=== PATIENT | male | born 1970 | race Caucasian/White ===

== ENCOUNTER 2017-01-01 16:37 | Emergency (ER) | payer MEDICARE ==
[~2017-01-01 16:37] MED LIST: SULF1TAB24 PO
[2017-01-01 17:21] VITALS: BP 143/86
--- NOTE | 2017-01-01 17:56 | PHYS DOC ---
Past Medical History Past Medical History: No Pertinent History Past Surgical History: Other Additional Past Surgical Histo: RIGHT WRIST NERVE SX Alcohol Use: Occasionally Drug Use: None Adult General Chief Complaint Chief Complaint: WOUND CHECK HPI HPI Patient is a 46 year old Male who is in the ED today for wound check for an abscess that was drained 2 days ago. Patient states the packing fell out yesterday. Patient states he is currently on antibiotics. Review of Systems Review of Systems Constitutional: Denies fever or chills [] Musculoskeletal: Denies back pain or joint pain [] Integument wound check Neurologic: Denies headache, focal weakness or sensory changes [] Endocrine: Denies polyuria or polydipsia [] Current Medications Current Medications Current Medications Medications (Trade) Dose Ordered Sig/Ana Start Time Stop Time Status Last Admin Dose Admin Diphtheria/ Tetanus/Acell Pertussis (Boostrix) 0.5 ml ONCE ONCE 01/01/17 18:00 01/01/17 18:01 Allergies Allergies Allergies Coded Allergies Type Severity Reaction Last Updated Verified No Known Drug Allergies 12/30/16 No Physical Exam Physical Exam Constitutional: Well developed, well nourished, no acute distress, non-toxic appearance. [] Skin: Right buttock with an open wound approximately 1 x 1 cm with surrounding approximately 2 cm of cellulitis. The area has trace amount of drainage. Back: No tenderness, no CVA tenderness. [] Extremities: No tenderness, no cyanosis, no clubbing, ROM intact, no edema. [] Neurologic: Alert and oriented X 3, normal motor function, normal sensory function, no focal deficits noted. [] Psychologic: Affect normal, judgement normal, mood normal. [] Current Patient Data Vital Signs Vital Signs Date Time Temp Pulse Resp B/P Pulse Ox O2 Delivery O2 Flow Rate FiO2 01/01/17 17:21 98.5 92 18 99 Room Air 98.5 EKG EKG [] Radiology/Procedures Radiology/Procedures [] Course & Med Decision Making Course & Med Decision Making Pertinent Labs and Imaging studies reviewed. (See chart for details) Patient is in the ED to be evaluated for an abscess that was opened up and drained 2 days ago. He is already on antibiotics. The area appears to be healing well. We cleaned the area and covered it again. Instructed patient to continue taking his antibiotics. He was given tetanus in the ED. Tylenol / Motrin recommended for pain. Instructed to return to the ED at any point wound condition worsens or develops a fever or has any other concerning symptoms. I recommended seeing a PCP in the next 7 days. Azeb Disclaimer Azeb Disclaimer This electronic medical record was generated, in whole or in part, using a voice recognition dictation system. Departure Departure Impression: Primary Impression: Wound check, abscess Disposition: HOME, SELF-CARE Condition: STABLE Referrals: NO PCP (PCP) CASSANDRA MERCEDES MD follow-up with your own doctor or the provided doctor in a week Patient Instructions: Abscess, Care After Additional Instructions: You were seen for an abscess on the left buttock which was drained 2 days ago. The wound appears to be healing well, continue taking antibiotics. Monitor it for worsening condition and return to the ED. If you have any fever also come back to the emergency room. Keep the area clean and dry. MARKEL DUNN APRN Jan 01, 2017 17:56
[2017-01-01] MEDS ORDERED: DIPHTH,PERTUSS(ACELL),TET TOX 0.5 ML DISP.SYRIN. VAX IM ONE (18:00)
== END 2017-01-01 18:23 | disposition home or self-care (01) ==
LOC: ER 16:37
DX: Z48.01 Encounter for change or removal of surgical wound dressing (principal)
CPT/HCPCS: 90471; 90715; 99283-25

== ENCOUNTER 2017-04-09 09:02 | Emergency (ER) | payer SELFPAY ==
[~2017-04-09] VITALS: Ht 188 cm; Wt 108.9 kg
[2017-04-09 09:10] VITALS: BP 146/71
[2017-04-09] MEDS ORDERED: SULF1TAB24 PO (09:37)
[2017-04-09] MEDS ORDERED: HYDR-971 PO (09:37)
--- NOTE | 2017-04-09 09:38 | PHYS DOC ---
Past Medical History Past Medical History: No Pertinent History Past Surgical History: No Surgical History, Other Additional Past Surgical Histo: RIGHT WRIST NERVE SX Alcohol Use: Occasionally Drug Use: None Adult General Chief Complaint Chief Complaint: ABSCESS HPI HPI Patient is a 46 year old male presents to the emergency department with a history of abscess on the right buttock. Patient states he has been placing Prid on the area. Patient denies drainage or discharge. Patient denies fever, chills, nausea or vomiting. Patient states he has had abscesses in the same area about 4 months ago. Patient denies recent use of antibiotics. Review of Systems Review of Systems Constitutional: Denies fever or chills [] Eyes: Denies change in visual acuity, redness, or eye pain [] HENT: Denies nasal congestion or sore throat [] Respiratory: Denies cough or shortness of breath [] Cardiovascular: No additional information not addressed in HPI [] GI: Denies abdominal pain, nausea, vomiting, bloody stools or diarrhea [] : Denies dysuria or hematuria [] Musculoskeletal: Denies back pain or joint pain [] Integument: Denies rash or skin lesions. C/o abscess to right buttock Neurologic: Denies headache, focal weakness or sensory changes [] Endocrine: Denies polyuria or polydipsia [] Allergies Allergies Allergies Coded Allergies Type Severity Reaction Last Updated Verified No Known Drug Allergies 12/30/16 No Physical Exam Physical Exam Constitutional: Well developed, well nourished, no acute distress, non-toxic appearance. [] HENT: Normocephalic, atraumatic, bilateral external ears normal, oropharynx moist, no oral exudates, nose normal. [] Eyes: PERRLA, EOMI, conjunctiva normal, no discharge. [] Neck: Normal range of motion, no tenderness, supple, no stridor. [] Cardiovascular: Patient pink, warm and dry Lungs & Thorax: no respiratory distress noted Skin: Warm, dry, no erythema, no rash. Patient with abscess noted to the right buttock, area appears red in color, tender with thick dark cream color drainage noted. Back: No tenderness Extremities: No tenderness, no cyanosis, no clubbing, ROM intact, no edema. [] Neurologic: Alert and oriented X 3, normal motor function, normal sensory function, no focal deficits noted. [] Psychologic: Affect normal, judgement normal, mood normal. [] Current Patient Data Vital Signs Vital Signs Date Time Temp Pulse Resp B/P (MAP) Pulse Ox O2 Delivery O2 Flow Rate FiO2 04/09/17 09:10 98.5 88 18 98 Room Air 98.5 EKG EKG [] Radiology/Procedures Radiology/Procedures [] Course & Med Decision Making Course & Med Decision Making Pertinent Labs and Imaging studies reviewed. (See chart for details) Expressed the area with thick dark creamy drainage noted. Area size appears as a golf ball size. Patient will be placed on Bactrim, he will be provided with Holley for severe pain and discomfort. Recommended warm sitz bath 4 times a day. Patient also informed Holley will cause drowsiness do not take if you need to be alert and oriented. Followup with your primary care provider in 3-5 days. Return to emergency department as needed for signs and symptoms that become worse. [] Dragon Disclaimer Dragon Disclaimer This electronic medical record was generated, in whole or in part, using a voice recognition dictation system. Departure Departure Impression: Primary Impression: Abscess of right buttock Disposition: 01 HOME, SELF-CARE Condition: STABLE Referrals: NO PCP (PCP) Patient Instructions: Abscess, [id number] Additional Instructions: Activity as tolerated Medication as prescribed Holley will cause drowsiness do not take if you need to be alert and oriented Warm sitz bath 4 times a day to help promote drainage Followup with your primary care provider in 3-5 days Return to emergency department as needed for signs and symptoms that becomes worse. Scripts Hydrocodone/Apap 5-325 (NORCO 5-325 TABLET) 1 Each Tablet 1 TAB PO PRN Q6HRS Y for PAIN, #15 TAB 0 Refills Prov: JOHN GIBBS APRN 04/09/17 Sulfamethoxazole/Trimethoprim (BACTRIM DS TABLET) 1 Each Tablet 1 TAB PO BID, #20 TAB Prov: JOHN GIBBS APRN 04/09/17 JOHN GIBBS APRN April 09, 2017 09:38
== END 2017-04-09 09:54 | disposition home or self-care (01) ==
LOC: ER 09:02
DX: L02.31 Cutaneous abscess of buttock (principal)
CPT/HCPCS: 99283

== ENCOUNTER 2017-05-29 18:30 | Emergency (ER) | payer SELFPAY ==
[~2017-05-29] VITALS: Ht 188 cm; Wt 104.3 kg
[~2017-05-29 18:30] MED LIST changes: +HYDR-971 PO
[2017-05-29 18:51] VITALS: BP 149/93
[2017-05-29] MEDS ORDERED: IV NORMAL SALINE 1000ML BAG 1,000 ML IV SCH (19:39)
[2017-05-29 20:00] LABS: BASO % 0 % (0-3); EOS % 1 % (0-3); HEMATOCRIT 43.9 % (39.0-53.0); HEMOGLOBIN 14.7 g/dL (13.0-17.5); LYMPH # 2.1 x10^3/uL (1.0-4.8); LYMPH % 18 % (24-48); MEAN CORPUSCULAR HEMOGLOBIN 29 pg (25-35); MEAN CORPUSCULAR HGB CONC 33 g/dL (31-37); MEAN CORPUSCULAR VOLUME 87 fL (79-100); MONO % 8 % (0-9); NEUT % 73 % (31-73); PLATELET COUNT 235 x10^3/uL (140-400); RED BLOOD COUNT 5.06 x10^6/uL (4.30-5.70); RED CELL DISTRIBUTION WIDTH 13.3 % (11.5-14.5); WHITE BLOOD COUNT 11.7 x10^3/uL (4.0-11.0)
[2017-05-29 20:12] LABS: CALCIUM 8.7 mg/dL (8.5-10.1); CREATININE 1.4 mg/dL (0.7-1.3); GFR 54.6; POTASSIUM 3.7 mmol/L (3.5-5.1)
[2017-05-29 20:15] LABS: BILIRUBIN,URINE NEGATIVE (NEG); GLUCOSE,URINE NEGATIVE (NEG); NITRITE,URINE NEGATIVE (NEG); PH,URINE 5.5; PROTEIN,URINE NEGATIVE (NEG-TRACE); UROBILINOGEN,URINE 0.2 mg/dL (0.2 mg/dL)
[2017-05-29 20:23] LABS: BACTERIA,URINE 0 /HPF (0-FEW); RBC,URINE 0 /HPF (0-2); WBC,URINE OCC /HPF (0-4)
[2017-05-29] MEDS ORDERED: CEPH-264 PO (20:40)
--- NOTE | 2017-05-29 20:41 | PHYS DOC ---
Past Medical History Past Medical History: No Pertinent History Additional Past Medical Histor: vision defecit (optic atrophy) Past Surgical History: No Surgical History, Other Additional Past Surgical Histo: RIGHT WRIST NERVE SX, AVM with radiation Alcohol Use: Occasionally Drug Use: None Adult General Chief Complaint Chief Complaint: ANXIETY/PANIC ATTACK HPI HPI 46-year-old male with a long history of anxiety never treated now presents to the emergency department after anxiety and panic attack today. Patient states he got symptoms that were typical for him he became severely anxious. He took a Xanax that as a friend's medication and now feels improved. Patient's blood pressure is slightly elevated nonevaluation and he states that he's been aware at least once previously that it had been elevated. He is not treated for high blood pressure. Patient states he eels he does get fatigued easily but has not had any chest pain or shortness of breath or other symptoms Review of Systems Review of Systems Constitutional: Denies fever or chills [] Eyes: Denies change in visual acuity, redness, or eye pain [] HENT: Denies nasal congestion or sore throat [] Respiratory: Denies cough or shortness of breath [] Cardiovascular: No additional information not addressed in HPI [] GI: Denies abdominal pain, nausea, vomiting, bloody stools or diarrhea [] : Denies dysuria or hematuria [] Musculoskeletal: Denies back pain or joint pain [] Integument: Denies rash or skin lesions [] Neurologic: Denies headache, focal weakness or sensory changes [] Endocrine: Denies polyuria or polydipsia [] Current Medications Current Medications Current Medications Medications (Trade) Dose Ordered Sig/Ana Start Time Stop Time Status Last Admin Dose Admin Sodium Chloride 1,000 ml @ 100 mls/hr Q10H 05/29/17 19:39 05/30/17 05:38 05/29/17 19:45 100 MLS/HR Allergies Allergies Allergies Coded Allergies Type Severity Reaction Last Updated Verified No Known Drug Allergies 12/30/16 No Physical Exam Physical Exam Well-appearing male in no acute distress alert and communicative and cooperative nonfocal neurologic exam. Benign exam except blood pressure 140s over 90s on monitor. Patient is asymptomatic after taking the Xanax at home Constitutional: Well developed, well nourished, no acute distress, non-toxic appearance. [] HENT: Normocephalic, atraumatic, bilateral external ears normal, oropharynx moist, no oral exudates, nose normal. [] Eyes: PERRLA, EOMI, conjunctiva normal, no discharge. [] Neck: Normal range of motion, no tenderness, supple, no stridor. [] Cardiovascular:Heart rate regular rhythm, no murmur [] Lungs & Thorax: Bilateral breath sounds clear to auscultation [] Abdomen: Bowel sounds normal, soft, no tenderness, no masses, no pulsatile masses. [] Skin: Warm, dry, no erythema, no rash. [] Back: No tenderness, no CVA tenderness. [] Extremities: No tenderness, no cyanosis, no clubbing, ROM intact, no edema. [] Neurologic: Alert and oriented X 3, normal motor function, normal sensory function, no focal deficits noted. [] Psychologic: Affect normal, judgement normal, mood normal. [] Current Patient Data Vital Signs Vital Signs Date Time Temp Pulse Resp B/P (MAP) Pulse Ox O2 Delivery O2 Flow Rate FiO2 05/29/17 18:51 98.5 95 18 149/93 (111) 98 Room Air 98.5 Lab Values Laboratory Tests Test 05/29/17 19:50 05/29/17 20:05 White Blood Count 11.7 x10^3/uL (4.0-11.0) H Red Blood Count 5.06 x10^6/uL (4.30-5.70) Hemoglobin 14.7 g/dL (13.0-17.5) Hematocrit 43.9 % (39.0-53.0) Mean Corpuscular Volume 87 fL (79-100) Mean Corpuscular Hemoglobin 29 pg (25-35) Mean Corpuscular Hemoglobin Concent 33 g/dL (31-37) Red Cell Distribution Width 13.3 % (11.5-14.5) Platelet Count 235 x10^3/uL (140-400) Neutrophils (%) (Auto) 73 % (31-73) Lymphocytes (%) (Auto) 18 % (24-48) L Monocytes (%) (Auto) 8 % (0-9) Eosinophils (%) (Auto) 1 % (0-3) Basophils (%) (Auto) 0 % (0-3) Neutrophils # (Auto) 8.6 x10^3uL (1.8-7.7) H Lymphocytes # (Auto) 2.1 x10^3/uL (1.0-4.8) Monocytes # (Auto) 0.9 x10^3/uL (0.0-1.1) Eosinophils # (Auto) 0.1 x10^3/uL (0.0-0.7) Basophils # (Auto) 0.0 x10^3/uL (0.0-0.2) Sodium Level 142 mmol/L (136-145) Potassium Level 3.7 mmol/L (3.5-5.1) Chloride Level 105 mmol/L (98-107) Carbon Dioxide Level 29 mmol/L (21-32) Anion Gap 8 (6-14) Blood Urea Nitrogen 18 mg/dL (8-26) Creatinine 1.4 mg/dL (0.7-1.3) H Estimated GFR (Cockcroft-Gault) 54.6 Glucose Level 101 mg/dL (70-99) H Calcium Level 8.7 mg/dL (8.5-10.1) Troponin I Quantitative < 0.017 ng/mL (0.000-0.055) Thyroid Stimulating Hormone (TSH) 2.471 uIU/mL (0.358-3.74) Urine Collection Type Unknown Urine Color Yellow Urine Clarity Clear Urine pH 5.5 Urine Specific [place] <=1.005 Urine Protein Negative mg/dL (NEG-TRACE) Urine Glucose (UA) Negative mg/dL (NEG) Urine Ketones (Stick) Negative mg/dL (NEG) Urine Blood Negative (NEG) Urine Nitrite Negative (NEG) Urine Bilirubin Negative (NEG) Urine Urobilinogen Dipstick 0.2 mg/dL (0.2 mg/dL) Urine Leukocyte Esterase Negative (NEG) Urine RBC 0 /HPF (0-2) Urine WBC Occ /HPF (0-4) Urine Bacteria 0 /HPF (0-FEW) Laboratory Tests 05/29/17 19:50 Laboratory Tests 05/29/17 19:50 EKG EKG EKG with normal sinus rhythm at 94 and normal axis no STEMI interpreted by me [] Radiology/Procedures Radiology/Procedures Chest x-ray chronic changes no acute disease interpreted by me [] Course & Med Decision Making Course & Med Decision Making Pertinent Labs and Imaging studies reviewed. (See chart for details) Signs and symptoms consistent with attacks of anxiety/panic in a patient with long history of untreated anxiety. He is a symptomatically emergency department , and that he feels he gets fatigued easily. Extensive workup unremarkable. Patient were to follow up with PCP for reevaluation and treatment of anxiety as needed. Patient were to follow up with PCP for recheck of a pressure and to initiate treatment for essential hypertension as needed no further workup or treatment indicated. Patient and common law spouse agree with outpatient follow- up and strict return precautions given. [] Dragon Disclaimer Dragon Disclaimer This electronic medical record was generated, in whole or in part, using a voice recognition dictation system. Departure Departure Impression: Primary Impression: Panic attack Additional Impression: Hypertension Disposition: HOME, SELF-CARE Condition: IMPROVED Referrals: NO PCP (PCP) Patient Instructions: Anxiety and Panic Attacks, Hypertension Additional Instructions: Is quite clearly give had an attack of your anxiety and panic today. Use Xanax as needed as prescribed and follow up with your doctor in 2 days for reevaluation and to discuss the need for continued treatment as needed. Given that you've suffered with these attacks for many years it seems likely that you may benefit from treatment with a benzodiazepine, for instance Xanax, as needed. The aware that her blood pressure was elevated today at 143/92. Follow- up with your doctor for recheck and to initiate treatment for essential hypertension as needed. Return immediately for new severe worsening symptoms Scripts Alprazolam (XANAX) 0.5 Mg Tablet 1 TAB PO BID Y for ANXIETY / AGITATION, #5 TAB Prov: MARIE GARRETT MD 05/29/17 Cephalexin (KEFLEX) 500 Mg Capsule 1 CAP PO QID, #20 CAP Prov: MARIE GARRETT MD 05/29/17 Problem Qualifiers MARIE GARRETT MD May 29, 2017 20:41
[2017-05-29] MEDS ORDERED: ALPR0.5T PO (20:47)
--- NOTE | 2017-05-30 06:46 | EKG ---
[facility] [address] [place] [address] Test Date: 2017-05-29 Test Time: 19:51:15 Pat Name: CHRISTINE DOOLEY Department: Room: Gender: M [place]apper: : 1970 Requested By: MARIE GARRETT Order Number: [id number] Reading MD: Measurements Intervals [place] Rate: 94 P: 37 DC: 140 QRS: 19 QRSD: 86 T: 16 QT: 336 QTc: 425 Interpretive Statements SINUS RHYTHM LEFT ATRIAL ABNORMALITY ABNORMAL ECG RI6.01 No previous ECG available for comparison
--- NOTE | 2017-05-30 08:09 | RAD ---
Portable chest, 05/29/2017: History: Palpitations The heart size and pulmonary vascularity are normal. The lungs are clear. There is no evidence of pleural fluid. IMPRESSION: No acute cardiopulmonary abnormality is detected.
== END 2017-05-29 21:10 | disposition home or self-care (01) ==
LOC: ER 18:30
DX: F41.0 Panic disorder [episodic paroxysmal anxiety] (principal); I10 Essential (primary) hypertension
CPT/HCPCS: 36415; 71010; 80048; 81001; 84443; 84484; 85027; 93005; 96360; 99285; J7030

== ENCOUNTER 2019-10-01 09:26 | Emergency (ER) | payer MEDICARE ==
[~2019-10-01] VITALS: Ht 188 cm; Wt 111.1 kg
[~2019-10-01 09:26] MED LIST changes: +ALPR0.5T PO; +CEPH-264 PO; +HYDR-3164 PO; -HYDR-971 PO
[2019-10-01] MEDS ORDERED: ASPIRIN CHEWABLE 81 MG TABLET. PO ONE (09:45)
[2019-10-01 09:56] LABS: BASO # 0.1 x10^3/uL (0.0-0.2); BASO % 1 % (0-3); EOS # 0.2 x10^3/uL (0.0-0.7); EOS % 2 % (0-3); HEMATOCRIT 43.9 % (39.0-53.0); HEMOGLOBIN 15.2 g/dL (13.0-17.5); LYMPH # 2.3 x10^3/uL (1.0-4.8); LYMPH % 24 % (24-48); MEAN CORPUSCULAR HEMOGLOBIN 31 pg (25-35); MEAN CORPUSCULAR HGB CONC 35 g/dL (31-37); MEAN CORPUSCULAR VOLUME 88 fL (79-100); MONO # 0.8 x10^3/uL (0.0-1.1); MONO % 8 % (0-9); NEUT # 6.2 x10^3/uL (1.8-7.7); NEUT % 65 % (31-73); PLATELET COUNT 240 x10^3/uL (140-400); RED BLOOD COUNT 4.98 x10^6/uL (4.30-5.70); RED CELL DISTRIBUTION WIDTH 13.2 % (11.5-14.5); WHITE BLOOD COUNT 9.4 x10^3/uL (4.0-11.0)
[2019-10-01 10:01] LABS: CALCIUM 9.5 mg/dL (8.5-10.1); CREATININE 1.3 mg/dL (0.7-1.3); GFR 58.9; POTASSIUM 4.3 mmol/L (3.5-5.1)
[2019-10-01 10:06] LABS: ALBUMIN 4.3 g/dL (3.4-5.0); ALBUMIN/GLOBULIN RATIO 1.2 (1.0-1.7); MAGNESIUM 1.9 mg/dL (1.8-2.4); TOTAL BILIRUBIN 0.5 mg/dL (0.2-1.0); TOTAL PROTEIN 7.9 g/dL (6.4-8.2)
--- NOTE | 2019-10-01 10:15 | RAD ---
AP and Lateral Views of the Chest 10/01/2019 9:38 AM Indication: Chest pain Comparison: Chest radiograph May 29, 2017 Findings: There is no focal consolidation or infiltrate identified. The cardiomediastinal silhouette is within normal limits. There is no evidence of pneumothorax or pleural effusion. No acute osseous abnormalities are identified. Impression: No evidence of acute cardiopulmonary process. Electronically signed by: Black Fowler MD (10/01/2019 10:12 AM) [id number]
--- NOTE | 2019-10-01 10:24 | PHYS DOC ---
Past Medical History Past Medical History: Anxiety, Hypertension Additional Past Medical Histor: vision defecit (optic atrophy) Past Surgical History: No Surgical History, Other Additional Past Surgical Histo: RIGHT WRIST NERVE SX, AVM with radiation Alcohol Use: Rarely Drug Use: None Adult General Chief Complaint Chief Complaint: DIZZY/LIGHT HEADED HPI HPI Patient is a 48 year old male patient with history of hypertension and anxiety who presents with obtaining of chest pain. Patient complaining of 2 episodes of left upper chest pain since last night that last about 10 seconds with radiation to left shoulder without shortness of breath, nausea and vomiting, palpitation. Patient complaining of dizziness and lightheadedness and states he took 1 mg of Xanax about an hour prior to arrival to ER with improvement of his condition. Review of Systems Review of Systems Constitutional: Denies fever or chills [] Eyes: Denies change in visual acuity, redness, or eye pain [] HENT: Denies nasal congestion or sore throat [] Respiratory: Denies cough or shortness of breath [] Cardiovascular: No additional information not addressed in HPI [] GI: Denies abdominal pain, nausea, vomiting, bloody stools or diarrhea [] : Denies dysuria or hematuria [] Musculoskeletal: Denies back pain or joint pain [] Integument: Denies rash or skin lesions [] Neurologic: Denies headache, focal weakness or sensory changes, reports dizziness [] Endocrine: Denies polyuria or polydipsia [] All other systems were reviewed and found to be within normal limits, except as documented in this note. Current Medications Current Medications Current Medications Medications (Trade) Dose Ordered Sig/[facility] Start Time Stop Time Status Last Admin Dose Admin Aspirin (Children'S Aspirin) 324 mg 1X ONCE 10/01/19 09:45 10/01/19 09:46 DC 10/01/19 09:58 324 MG Allergies Allergies Allergies Coded Allergies Type Severity Reaction Last Updated Verified No Known Drug Allergies 12/30/16 No Physical Exam Physical Exam Constitutional: Well developed, well nourished, mild distress, non-toxic appearance. [] HENT: Normocephalic, atraumatic. Eyes: PERRLA, EOMI, conjunctiva normal, no discharge. [] Neck: Normal range of motion, no tenderness, supple, no stridor. [] Cardiovascular:Heart rate regular rhythm, no murmur [] Lungs & Thorax: Bilateral breath sounds clear to auscultation [] Abdomen: Bowel sounds normal, soft, no tenderness, no masses, no pulsatile masses. [] Skin: Warm, dry, no erythema, no rash. [] Back: No tenderness, no CVA tenderness. [] Extremities: No tenderness, no cyanosis, no clubbing, ROM intact, no edema. [] Neurologic: Alert and oriented X 3, no focal deficits noted. [] Psychologic: Affect anxious, judgement normal, mood normal. [] Current Patient Data Vital Signs Vital Signs Date Time Temp Pulse Resp B/P (MAP) Pulse Ox O2 Delivery O2 Flow Rate FiO2 10/01/19 10:29 75 16 99 10/01/19 09:40 98.1 162/104 (123) Room Air 98.1 Lab Values Laboratory Tests Test 10/01/19 09:35 White Blood Count 9.4 x10^3/uL (4.0-11.0) Red Blood Count 4.98 x10^6/uL (4.30-5.70) Hemoglobin 15.2 g/dL (13.0-17.5) Hematocrit 43.9 % (39.0-53.0) Mean Corpuscular Volume 88 fL (79-100) Mean Corpuscular Hemoglobin 31 pg (25-35) Mean Corpuscular Hemoglobin Concent 35 g/dL (31-37) Red Cell Distribution Width 13.2 % (11.5-14.5) Platelet Count 240 x10^3/uL (140-400) Neutrophils (%) (Auto) 65 % (31-73) Lymphocytes (%) (Auto) 24 % (24-48) Monocytes (%) (Auto) 8 % (0-9) Eosinophils (%) (Auto) 2 % (0-3) Basophils (%) (Auto) 1 % (0-3) Neutrophils # (Auto) 6.2 x10^3/uL (1.8-7.7) Lymphocytes # (Auto) 2.3 x10^3/uL (1.0-4.8) Monocytes # (Auto) 0.8 x10^3/uL (0.0-1.1) Eosinophils # (Auto) 0.2 x10^3/uL (0.0-0.7) Basophils # (Auto) 0.1 x10^3/uL (0.0-0.2) Sodium Level 140 mmol/L (136-145) Potassium Level 4.3 mmol/L (3.5-5.1) Chloride Level 103 mmol/L (98-107) Carbon Dioxide Level 30 mmol/L (21-32) Anion Gap 7 (6-14) Blood Urea Nitrogen 17 mg/dL (8-26) Creatinine 1.3 mg/dL (0.7-1.3) Estimated GFR (Cockcroft-Gault) 58.9 BUN/Creatinine Ratio 13 (6-20) Glucose Level 116 mg/dL (70-99) H Calcium Level 9.5 mg/dL (8.5-10.1) Magnesium Level 1.9 mg/dL (1.8-2.4) Total Bilirubin 0.5 mg/dL (0.2-1.0) Aspartate Amino Transferase (AST) 26 U/L (15-37) Alanine Aminotransferase (ALT) 58 U/L (16-63) Alkaline Phosphatase 60 U/L (46-116) Creatine Kinase 117 U/L (39-308) Troponin I Quantitative < 0.017 ng/mL (0.000-0.055) JS-Foj-J-Type Natriuretic Peptide 30 pg/mL (0-124) Total Protein 7.9 g/dL (6.4-8.2) Albumin 4.3 g/dL (3.4-5.0) Albumin/Globulin Ratio 1.2 (1.0-1.7) Lipase 228 U/L (73-393) Laboratory Tests 10/01/19 09:35 Laboratory Tests 10/01/19 09:35 EKG EKG EKG interpreted by me. EKG at 0 952 showed normal sinus rhythm at rate of 71, no rmal IL and QT interval patient, no acute ST and T-wave elevation. Radiology/Procedures Radiology/Procedures [][facility] [address] [place] [address] IMAGING REPORT Signed PATIENT: CHRISTINE DOOLEY ACCOUNT: [id number] : 1970 LOCATION: ER AGE: 48 SEX: M EXAM STATUS: REG ER ORD. PHYSICIAN: SONALI BARNES MD REASON: chest pain PROCEDURE: CHEST PA & LATERAL AP and Lateral Views of the Chest 10/01/2019 9:38 AM Indication: Chest pain Comparison: Chest radiograph May 29, 2017 Findings: There is no focal consolidation or infiltrate identified. The cardiomediastinal silhouette is within normal limits. There is no evidence of pneumothorax or pleural effusion. No acute osseous abnormalities are identified. Impression: No evidence of acute cardiopulmonary process. Electronically signed by: Black Bell MD (10/01/2019 10:12 AM) [id number] DICTATED and SIGNED BY: BLACK BELL MD DATE: 10/01/19 1012 Course & Med Decision Making Course & Med Decision Making Pertinent Labs and Imaging studies reviewed. (See chart for details) Evaluation of patient in ER showed 48-year-old male patient with history of anxiety with heart score of 2 presented to ER and getting of 2 episodes of chest pain for few second. Patient was anxious in ER. EKG, labs, chest x-ray was unre markable. Patient felt better while he was in ER. Plan discharge patient home to diagnose of anxiety. I've spoken with the patient and/or caregivers. I've explained the patient's co ndition, diagnosis and treatment plan based on information available to me at this time. I've answered the patient's and/or caregivers questions and addressed any concerns. The patient and/or caregivers have a good understanding the patient's diagnosis, condition and treatment plan as can be expected at this point. Vital signs have been stabilized. The patient's condition is stable for discharge from the emergency department. The patient will pursue further outpatient evaluation with her primary care provider or other designated consulting physician as outlined in the discharge instructions. Patient and/or caregivers are agreeable to this plan of care and follow-up instructions have been explained in detail. The patient and/or caregivers have received these instructions in written format and expressed understanding of these discharge instructions. The patient and her caregivers are aware that if any significant change in condition or worsening of symptoms should prompt him to immediately return to this of the closest emergency department. If an emergent department is not readily available I would encourage him to call 911. Azeb Disclaimer Azeb Disclaimer This electronic medical record was generated, in whole or in part, using a voice recognition dictation system. Departure Departure Impression: Primary Impression: Anxiety about health Additional Impression: Chest wall pain Disposition: HOME, SELF-CARE (at 1023) Condition: STABLE Referrals: NO PCP (PCP) Patient Instructions: Anxiety and Panic Attacks, Chest Wall Pain Additional Instructions: Drink plenty of liquids Follow-up with your primary care physician in 3-5 days Return to ER if not getting better Continue home medication The HEART Score for CP Pts HEART Score for Chest Pain: HEART Score for Chest Pain Response (Comments) Value History Slighlty/Non-Suspicious 0 ECG Normal 0 Age >45 - < 65 1 Risk Factors 1 or 2 Risk Factors 1 Troponin < Normal Limit 0 Total 2 Risk Factors: Risk Factors: DM, Current or recent (<one month) smoker, HTN, HLP, family history of CAD, obesity. Risk Scores: Score 0 - 3: 2.5% MACE over next 6 weeks - Discharge Home Score 4 - 6: 20.3% MACE over next 6 weeks - Admit for Clinical Observation Score 7 - 10: 72.7% MACE over next 6 weeks - Early Invasive Strategies Problem Qualifiers SONALI BARNES MD Oct 01, 2019 10:24
[2019-10-01 10:29] VITALS: BP 133/81
--- NOTE | 2019-10-01 11:04 | EKG ---
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
== END 2019-10-01 10:29 | disposition home or self-care (01) ==
LOC: ER 09:26
DX: F41.9 Anxiety disorder, unspecified (principal); R07.89 Other chest pain; R42 Dizziness and giddiness; M25.512 Pain in left shoulder; I10 Essential (primary) hypertension
CPT/HCPCS: 36415; 71046; 80053; 82550; 83690; 83735; 83880; 84484; 85025; 93005; 99285-25